=== PATIENT | female | born 1985 | race Caucasian/White ===

== ENCOUNTER 2020-07-29 07:42 | Emergency (ER) | payer OTHER ==
[~2020-07-29] VITALS: Ht 165.1 cm; Wt 72.6 kg
[2020-07-29 07:48] VITALS: BP 118/76
[2020-07-29] MEDS ORDERED: ONDANSETRON PF 4 MG/2 ML VIAL. ONE (08:11)
[2020-07-29] MEDS ORDERED: IV NORMAL SALINE 1,000ML 1,000 ML IV ONE (08:15)
[2020-07-29] MEDS ORDERED: ONDANSETRON PF 4 MG/2 ML VIAL. IVP ONE (08:15)
--- NOTE | 2020-07-29 08:18 | PHYS DOC ---
Past History Past Medical History: No Pertinent History Additional Past Surgical Histo: ovarian cyst removed Alcohol Use: None General Adult EDM: Chief Complaint: CHEST PAIN HPI: HPI: Patient is a 34-year-old female with chest "heaviness". Patient states her symptoms been present for about 1 day, states she woke the symptoms yesterday morning. She states the night before she got out to eat [place] food. Also complaining of dry heaving and "gurgling stomach pain". Patient says she had Covid diagnosed about 3 weeks ago, but states she was not severely ill. Denies any cough or fevers. She also states she has been having diarrhea since yesterday. Denies any recent sick contacts or antibiotic use. Not have any medical conditions, heart problems, lung problems. Is breast-feeding her 1-year-old. Denies tobacco, alcohol, drug use. Denies any significant family history of heart disease. She denies any pain and says she does not have any difficulty breathing. Took a Zantac and at times yesterday with some improvement Review of Systems: Review of Systems: All other systems within normal limits except for as noted in the HPI Allergies: Allergies: Allergies Coded Allergies Type Severity Reaction Last Updated Verified cefaclor Allergy Unknown Rash 07/29/20 Yes Physical Exam: PE: Constitutional: Well developed, well nourished, no acute distress, non-toxic appearance. [] HENT: Normocephalic, atraumatic, bilateral external ears normal, nose normal. [] Eyes: PERRLA, conjunctiva normal, no discharge. [] Neck: No rigidity, supple, no stridor. [] Cardiovascular: Regular rate and rhythm, brisk cap refill, symmetric radial pulses [] Lungs & Thorax: Non labored symmetric respirations, no tachypnea or respiratory distress. No chest pain with palpation [] Abdomen: Soft, nondistended, nontender. Skin: Warm, dry, no erythema, no rash. [] Back: Unremarkable Extremities: No deformities, range of motion grossly intact, no lower extremity edema [] Neurologic: Alert and oriented X 3, no focal deficits noted. [] Psychologic: Affect normal, judgement normal, mood normal. [] Current Patient Data: Vital Signs: Vital Signs Date Time Temp Pulse Resp B/P (MAP) Pulse Ox O2 Delivery O2 Flow Rate FiO2 07/29/20 07:48 98.8 112 18 118/76 (90) 98 EKG: EKG: Sinus tachycardia, heart rate 101, no ST elevation or depression, no ectopy, T waves unremarkable, normal axis. [] Radiology/Procedures: Radiology/Procedures: EXAM: XR CHEST 2V INDICATION: Reason: chest pressure / Spl. Instructions: / History: . TECHNIQUE: PA and lateral views COMPARISON: None FINDINGS: The heart size is normal. The great vessels appear unremarkable. There is no hilar or mediastinal mass. The lungs are clear. There is no pleural effusion or pneumothorax. There are no significant osseous abnormalities. IMPRESSION: No active cardiopulmonary disease.[] Heart Score: Risk Factors: Risk Factors: DM, Current or recent (<one month) smoker, HTN, HLP, family history of CAD, obesity. Risk Scores: Score 0 - 3: 2.5% MACE over next 6 weeks - Discharge Home Score 4 - 6: 20.3% MACE over next 6 weeks - Admit for Clinical Observation Score 7 - 10: 72.7% MACE over next 6 weeks - Early Invasive Strategies Course & Med Decision Making: Course & Med Decision Making Pertinent Labs and Imaging studies reviewed. (See chart for details) Work-up unremarkable and symptoms completely resolved with GI cocktail. [] Dragon Disclaimer: Dragon Disclaimer: This electronic medical record was generated, in whole or in part, using a voice recognition dictation system. Departure Departure: Impression: Primary Impression: GERD (gastroesophageal reflux disease) Disposition: 01 DC HOME SELF CARE/HOMELESS Condition: STABLE Referrals: ABAD REVELES DO (PCP) Patient Instructions: Diet for Gastroesophageal Reflux Disease, Adult Scripts Famotidine (FAMOTIDINE) 20 Mg Tablet 1 TAB PO BID for antacid for 14 Days, #28 TAB 5 Refills Prov: HEATHER SANCHEZ MD 07/29/20 HEATHER SANCHEZ MD Jul 29, 2020 08:18
--- NOTE | 2020-07-29 08:39 | RAD ---
EXAM: XR CHEST 2V INDICATION: Reason: chest pressure / Spl. Instructions: / History: . TECHNIQUE: PA and lateral views COMPARISON: None FINDINGS: The heart size is normal. The great vessels appear unremarkable. There is no hilar or mediastinal mass. The lungs are clear. There is no pleural effusion or pneumothorax. There are no significant osseous abnormalities. IMPRESSION: No active cardiopulmonary disease. Electronically signed by: Humberto Jensen MD (07/29/2020 8:37 AM) [facility] [place]
[2020-07-29 08:52] LABS: BASO % 1 % (0-3); EOS % 0 % (0-3); HEMATOCRIT 44.2 % (36.0-47.0); HEMOGLOBIN 15.1 g/dL (12.0-15.5); LYMPH # 1.2 x10^3/uL (1.0-4.8); LYMPH % 16 % (24-48); MEAN CORPUSCULAR HEMOGLOBIN 30 pg (25-35); MEAN CORPUSCULAR HGB CONC 34 g/dL (31-37); MEAN CORPUSCULAR VOLUME 89 fL (79-100); MONO # 0.2 x10^3/uL (0.0-1.1); MONO % 3 % (0-9); NEUT # 5.9 x10^3uL (1.8-7.7); NEUT % 80 % (31-73); PLATELET COUNT 275 x10^3/uL (140-400); RED CELL DISTRIBUTION WIDTH 12.7 % (11.5-14.5); WHITE BLOOD COUNT 7.3 x10^3/uL (4.0-11.0)
[2020-07-29 08:55] LABS: CALCIUM 9.7 mg/dL (8.5-10.1); CREATININE 0.7 mg/dL (0.6-1.0); GFR 96.4; POTASSIUM 3.8 mmol/L (3.5-5.1)
[2020-07-29] MEDS ORDERED: LIDO:MAALOX 1:1 20 ML SINGLE DOSE. PO ONE (09:00)
[2020-07-29 09:10] LABS: BACTERIA,URINE FEW /HPF (0-FEW); BILIRUBIN,URINE NEG (NEG); CLARITY,URINE HAZY; COLOR,URINE YELLOW; GLUCOSE,URINE NEG (NEG); NITRITE,URINE NEG (NEG); SQUAMOUS EPITHELIAL CELL,UR MANY /LPF; UROBILINOGEN,URINE 0.2 mg/dL (0.2 mg/dL)
[2020-07-29 09:10] LABS: ALBUMIN 4.3 g/dL (3.4-5.0); ALBUMIN/GLOBULIN RATIO 1.1 (1.0-1.7); TOTAL BILIRUBIN 0.5 mg/dL (0.2-1.0); TOTAL PROTEIN 8.2 g/dL (6.4-8.2)
--- NOTE | 2020-07-29 10:01 | EKG ---
[address] [address] Test Date: 2020-07-29 Test Time: 08:04:55 Pat Name: JAMAR ISABEL Department: Room: Gender: F [employer]: APOLLO : 1985 Requested By: HEATHER SANCHEZ Order Number: [id number] Reading MD: Measurements Intervals [place] Rate: 101 P: 9 [place]: 146 QRS: 64 QRSD: 86 T: 34 QT: 338 QTc: 439 Interpretive Statements SINUS TACHYCARDIA OTHERWISE NORMAL ECG RI6.02 No previous ECG available for comparison
[2020-07-29] MEDS ORDERED: FAMO20TA5 PO (10:04)
== END 2020-07-29 10:10 | disposition home or self-care (01) ==
LOC: ER 07:42
DX: K21.9 Gastro-esophageal reflux disease without esophagitis (principal); Z88.1 Allergy status to other antibiotic agents
CPT/HCPCS: 36415; 71046; 80053; 81001; 81025; 83690; 83880; 84484; 85025; 85379; 93005; 96361; 96374; 99285; J2405; J7030